=== PATIENT | female | born 1995 | race Caucasian/White ===

== ENCOUNTER 2023-08-15 23:13 | Emergency (ER) | payer SELFPAY ==
[2023-08-15 23:17] VITALS: BP 130/86; PULSE 77; RESP 16; TEMP 36.8; O2SAT 96; BMI 52.2
--- NOTE | 2023-08-15 23:37 | CT_ITS ---
The [address] [address] Patient Name: RAINA WHYTE MRN: [id number] date: 1995 Sex: F Assigned Patient Location: ER Current Patient Location: ER Accession/Order Number: [id number] Exam Date: 08/15/2023 23:59 Report Date: 08/16/2023 00:43 At the request of: CAREN BYNUM Procedure: CT head/brain wo con EXAM: CT head/brain wo con HISTORY: Headache, nausea and dizziness COMPARISON: None. TECHNIQUE: Axial CT scans through the head were obtained without IV contrast administration. Dose reduction techniques were achieved by using: automated exposure control and/or adjustment of mA and /or kV according to patient size and/or use of iterative reconstruction technique. FINDINGS: There is no acute intracranial hemorrhage or abnormal extra-axial fluid collection. No mass effect or midline shift is seen. There is no evidence of large acute territorial infarction. There is no hydrocephalus. To the limit of CT, the posterior fossa appears unremarkable. The calvaria and extra cranial soft tissues are unremarkable. The visualized orbits show no abnormal mass. The visualized paranasal sinuses show no air-fluid level. Mastoid air cells are clear. There are cerumen within bilateral external auditory canals. CT/CT head/brain wo con IMPRESSION: Unremarkable brain CT performed without contrast. Electronically authenticated by: MAHENDRA STARK Date: 08/16/2023 00:43
[2023-08-16] MEDS: KETOROLAC TROMETHAMINE 30 MG/ML VIAL 15 MG IVP (00:03)
[2023-08-16] MEDS: PROCHLORPERAZINE 10 MG/2 ML VIAL IV (00:03)
[2023-08-16] MEDS: 0.9 % SODIUM CHLORIDE 1,000 ML 999 ML IV (00:03)
[2023-08-16] MEDS: ORPHENADRINE 60 MG/ 2 ML VIAL IV (00:03)
[2023-08-16] MEDS: DEXAMETHASONE SOD PHOS (PF) 10 MG/ML VIAL IV (00:04)
--- NOTE | 2023-08-16 00:05 | ED_ITS ---
HPI - General Adult General Chief complaint: Headache Stated complaint: HEADACHE Time Seen by Provider: 08/15/23 23:30 Source: patient Mode of arrival: walk-in History of Present Illness HPI narrative: Patient is a 20-year-old female who is presenting to the Emergency Room with chief complaint of acute on chronic headache/migraine. Patient's been having headaches and migraines since 2019 approximately. Patient boyfriend is at bedside. We can speak about patient's care from the boyfriend. Patient's had no recent head injury, no fall, no trauma. Patient has had nausea no vomiting. Patient states that she has multiple ALLERGIES to medications at home, patient believes is according to medications at home. Patient's never been to the Emergency Room previously for headache. Patient has never had a CT of the brain or MRI. Patient has never seen a neurologist previously. Patient's PCP is in [place]. Patient was seen a PCP in [place], and they were switched, and patient has no current medical care no current treatment for headaches or migraines. Patient has tried a few migraine medications in the past and the relief. Patient's has no recent falls. Patient is employed. Patient has no recent trauma. Patient has photophobia, phonophobia. Patient has mild neck pain. Patient has no other acute complaints at this time. . All systems are negative except as noted/marked. All systems reviewed and otherwise negative. . Nurses note and vital signs reviewed and patient is not hypoxic. General: The patient appears well and in no apparent distress. Patient is resting comfortably on cart. Patient is not toxic, lethargic, or listless Skin: Warm, dry, no pallor noted. There is no rash noted. No petechiae, purpura. Head: Normocephalic, atraumatic, Patient has mild paracervical soft tissue tenderness to palpation. No meningeal signs. No nuchal rigidity. Eye: Normal conjunctiva, no drainage, EOMI. PERRL; 4/2 Equal, bilateral. Ears, Nose, Mouth, and Throat: oral mucosa is moist. Nares patent. Mouth without vesicles. Cardiovascular: Regular Rate and Rhythm, no murmur, gallop, rub Respiratory: Patient is in no distress, no accessory muscle use, lungs are clear to auscultation, no wheezing, rales or rhonchi Back: non-tender, no CVA tenderness bilaterally to percussion. No CT LS midline pain GI: soft, obese, no tenderness to palpation, no masses appreciated. No rebound, guarding, or rigidity noted. No flank pain bilateral, No distention Musculoskeletal: Patient has full range of motion of all of the extremities, no motor, sensory, or focal neurological deficits Neurological: A&O x3, normal speech Psychiatric: Cooperative Related Data Home Medications Medication Instructions Recorded Confirmed omeprazole 20 mg capsule,delayed 20 mg PO DAILY 08/15/23 08/15/23 release Previous Rx's Medication Instructions Recorded prochlorperazine maleate 10 mg 10 mg PO Q12H PRN nausea and 08/16/23 tablet (Compazine) vomiting, headache 7 days #7 tabs Allergies Allergy/AdvReac Type Severity Reaction Status Date / Time acetaminophen [From Tylenol] Allergy Anaphylaxis Verified 08/15/23 23:27 aspirin Allergy Anaphylaxis Verified 08/15/23 23:27 [From Excedrin Migraine] caffeine Allergy Anaphylaxis Verified 08/15/23 23:27 [From Excedrin Migraine] ibuprofen [From Advil] Allergy Anaphylaxis Verified 08/15/23 23:27 codine Allergy Anaphylaxis Uncoded 08/15/23 23:27 PFSH PFSH Social History Smoking status: Never smoker Exam Constitutional Vital Signs, click to edit/add: Last Vital Signs Temp 98.3 F 08/15/23 23:17 Pulse 77 08/15/23 23:17 Resp 16 08/15/23 23:17 BP 130/86 08/15/23 23:17 Pulse Ox 96 08/15/23 23:17 O2 Del Method Room Air 08/15/23 23:17 Course Vital Signs Vital signs: Vital Signs Temperature 98.3 F 08/15/23 23:17 Pulse Rate 77 08/15/23 23:17 Respiratory Rate 16 08/15/23 23:17 Blood Pressure 130/86 08/15/23 23:17 Pulse Oximetry 96 08/15/23 23:17 Oxygen Delivery Method Room Air 08/15/23 23:17 Temperature 98.3 F 08/15/23 23:17 Pulse Rate 77 08/15/23 23:17 Respiratory Rate 16 08/15/23 23:17 Blood Pressure 130/86 08/15/23 23:17 Pulse Oximetry 96 08/15/23 23:17 Oxygen Delivery Method Room Air 08/15/23 23:17 Medical Decision Making MDM Narrative Medical decision making narrative: Patient has multiple medication ALLERGIES. Patient states she's never had IV medication before, she's never had IV Toradol previously. Patient wheezes to codeine the medication that she is ALLERGIC to at home. Patient is going to have IV Toradol, IV Compazine, Norflex, Decadron, and IV fluids. Patient is never had any imaging of the brain before, CT of the brain will be done To rule out normal pressure hydrocephalus. 0100 Patient's headache has significant improvement. Nausea is improved. Patient finished 1 L of IV fluid. Patient had no side effect to medication that has been given. CT of the brain showed no acute findings. Patient was sent home with a prescription for Compazine to use as needed for nausea, vomiting, or headache. Patient will follow-up with and establish PCP and neurology. Patient just received medical insurance again yesterday. No questions at discharge. Patient's boyfriend is driving her home. Discharge Plan Discharge Chief Complaint: Headache Clinical Impression: Headache Patient Disposition: Home, Self-Care Condition: Fair Prescriptions / Home Meds: New prochlorperazine maleate [Compazine] 10 mg tablet 10 mg PO Q12H PRN (Reason: nausea and vomiting, headache) 7 Days Qty: 7 0RF No Action omeprazole 20 mg capsule,delayed release(DR/EC) 20 mg PO DAILY Instructions: Acute Headache (ED) Additional Instructions: Follow-up and establish with PCP along with neurology for ongoing treatment of headache and migraines. Use Compazine as needed for nausea, vomiting or headache. Stand Alone Forms: Portal Instructions Referrals: Physician,Non-Staff, MD [Primary Care Provider] - 1 week
[2023-08-16 01:12] VITALS: BP 115/85; PULSE 80; RESP 16; O2SAT 97
== END 2023-08-16 01:16 | disposition home or self-care (01) ==
PROVIDERS: Emergency Provider Emergency Medicine
DX: R51.9 Headache, unspecified (principal); E66.9 Obesity, unspecified; Z68.43 Body mass index [BMI] 50.0-59.9, adult; Z79.899 Other long term (current) drug therapy
CPT/HCPCS: 70450; 96374; 96375; 99284

== ENCOUNTER 2024-07-20 03:56 | Emergency (ER) | payer MEDICAID, SELFPAY ==
[2024-07-20 03:58] VITALS: BP 138/87; PULSE 78; TEMP 36.6; O2SAT 96; BMI 54.3
--- OUTSIDE RECORDS SUMMARY | 2024-07-20 04:12 | XMS_ITS | CCD ---
Author Organization [facility] Team Providers Care Disbursing Agent Name Role Phone REI NARVAEZ JR Attending Unavailable REQUEST, NONE LISTED Primary Care Unavaila rosita BANERJEE, DR BARRETT Admitting Unavailable CHRISS, DR BARRETT Attending Unavailable SIDDHARTHA FRANZ Consulting Unavailable REQUEST, DR GONZALEZ LISTED Primary Care UnavailSIDDHARTHA Alfaro Attending Unavailable SIDDHARTHA FRANZ Admitting Unavailable Unavailable Primary Care Provider JR Thibodeaux Primary Care Unavailable MANJU JOSÉ Attending Unavailable ERLINDA OCHOA Attending Unavailable ERLINDA OCHOA Referring Unavailable JR NARANJO Primary Care Unavailable Allergies Allergy Classification Reported Allergen(s) Allergy Type Date of Onset Reaction(s) Facility (3 sources) Acetaminophen; Translations: [ACETAMINOPHEN] Drug Allergy 05-11-2023 [facility] (2 sources) Ibuprofen Drug Allergy 05-11-2023 [facility] Medications Current Medications Medication Drug Class(es) Dates Sig (Normalized) Sig (Original) cyclobenzaprine hydrochloride 10 mg oral tablet (2 sources) Muscle Relaxant Start: 05-11-2023 take 1 tablet by mouth three times daily as needed for muscle spasms cyclobenzaprine (FLEXERIL) 10 MG tablet Take 1 Tablet by mouth 3 times daily as needed for Muscle spasms. 21 Tablet 0 05/11/2023 Active lidocaine 0.05 mg/mg medicated patch (3 sources) Antiarrhythmic, Amide Local Anesthetic Start: 05-11-2023 apply 1 dose transdermal route every twenty-four hours lidocaine (Lidoderm) 5 % patch Place 1 Patch on the skin every 24 hours. 10 Patch 0 05/11/2023 Active omeprazole 20 mg delayed release oral capsule (2 sources) Proton Pump Inhibitor Start: 05-11-2023 End: 06-10-2023 take 1 capsule by mouth once daily omeprazole (PRILOSEC) 20 MG capsule Take 1 Capsule by mouth daily. 30 Capsule 0 05/11/2023 Active sucralfate 1000 mg oral tablet (2 sources) Aluminum Complex Start: 05-11-2023 End: 05-19-2023 take 1 tablet by mouth four times daily sucralfate (Carafate) 1 GM tablet Take 1 Tablet by mouth 4 times daily for 8 days. 30 Tablet 0 05/11/2023 Active Completed/Discontinued Medications Medication Drug Class(es) Dates Sig (Normalized) Sig (Original) diphenhydrAMINE-maalo x-lidocaine (BMX) 1:1:1 oral suspension (1 source) Start: 05-11-2023 End: 05-11-2023 diphenhydrAMINE-maal ox-lidocaine (BMX) 1:1:1 oral suspension ondansetron 4 mg disintegrating oral tablet (1 source) Serotonin-3 Receptor Antagonist Start: 05-11-2023 End: 05-11-2023 ondansetron (ZOFRAN-ODT) disintegrating tablet Problems Active Problems Problem Classification Problem Date Documented Da te Episodic/Chronic Esophageal disorders (2 sources) Gastro-esophageal reflux disease with esophagitis; Translations: [Gastroesophageal reflux disease with esophagitis without hemorrhage] Onset: 11-11-2022 05-11-2023 Chronic Headache; including migraine (2 sources) Migraine without aura, not refractory ; Translations: [Migraine without aura, not intractable, with status migrainosus] Onset: 01-10-2023 05-11-2023 Chronic Malaise and fatigue (2 sources) Fatigue; Translations: [Chronic fatigue, unspecified] Onset: 03-25-2022 05-11-2023 Chronic Mood disorders (2 sources) Depressive disorder; Translations: [Depression] Onset: 05-11-2023 05-11-2023 Chronic Other disorders of stomach and duodenum (1 source) Indigestion; Translations: [Functional dyspepsia] 05-11-2023 Episodic Other non-traumatic joint disorders (2 sources) Shoulder pain Onset: 04-12-2024 Episodic Other nutritional; endocrine; and metabolic disorders (2 sources) Severe obesity; Translations: [Morbid (severe) obesity due to excess calories] Onset: 03-25-2022 05-11-2023 Chronic Sprains and strains (2 sources) Strain of back muscle; Translations: [Strain of muscle, fascia and tendon of lower back, initial encounter] Onset: 04-12-2024 05-11-2023 Episodic Unclassified (3 sources) CONTACT W/AND (SUSP) EXPOS COVID-19; Translations: [CONTACT W/AND (SUSP) EXPOS COVID-19] Onset: 06-02-2021 Past or Other Problems Problem Classification Problem Date Documented Date Episodic/Chronic Abdominal hernia (2 sources) Hiatal hernia; Translations: [Diaphragmatic hernia without obstruction or gangrene] Onset: 12-02-2022 05-11-2023 Episodic Abdominal pain (5 sources) Chronic abdominal pain; Translations: [Unspecified abdominal pain] Onset: 11-11-2022 05-11-2023 Episodic Cancer of cervix (2 sources) Cervicovaginal cytology: High grade squamous intraepithelial lesion or carcinoma; Translations: [High grade squamous intraepithelial lesion on cytologic smear of cervix (HGSIL)] Onset: 05-11-2023 05-11-2023 Episodic Nausea and vomiting (2 sources) Nausea and vomiting; Translations: [Nausea with vomiting, unspecified] Onset: 11-11-2022 05-11-2023 Episodic Nutritional deficiencies (2 sources) Cobalamin deficiency; Translations: [Deficiency of other specified B group vitamins] Onset: 04-28-2022 05-11-2023 Episodic Other non-traumatic joint disorders (2 sources) Arthralgia of the ankle and/or foot; Translations: [Pain in left ankle and joints of left foot] Onset: 08-04-2022 05-11-2023 Episodic Other screening for suspected conditions (not mental disorders or infectious disease) (2 sources) Patient encounter status; Translations: [Encounter for screening for lipoid disorders] Onset: 03-25-2022 05-11-2023 Episodic Residual codes; unclassified (2 sources) Difficulty sleeping ; Translations: [Sleep deprivation] Onset: 03-25-2022 05-11-2023 Episodic Spondylosis; intervertebral disc disorders; other back problems (2 sources) Low back pain; Translations: [Lumbar pain] Onset: 03-25-2022 05-11-2023 Episodic Unclassified (1 source) CONTACT W/AND (SUSP) EXPOS COVID-19; Translations: [CONTACT W/AND (SUSP) EXPOS COVID-19] Onset: 05-16-2021 Results Test Name Value Interpretation Reference Range Facil ity XR SHOULDER LT MIN 2 VWSon 0 04-12-2024 XR SHOULDER LT MIN 2 VWS XR SHOULDER LT MIN 2 VWS XR SHOULDER LT MIN 2 VWS History: pain Comparison January 25, 2016 Findings: There is no fracture, dislocation, or destructive lesion. Impression: * No acute findings. Consider MR if you suspect occult internal derangement 0 Finalized by Preet Ni MD on 04/12/2024 12:13 AM Normal [facility] HCG URINEOrdered By: Tia jeffers on 05-11-2023 HCG ( test) Ql (U) Negative Negative [facility] Interpretation and review of laboratory results Normal [facility] URINALYSISon 05-11-2023 Appearance (U) Clear Clear [facility] Bilirubin Ql (U) Negative Negative [facility] Color (U) Yellow Yellow [facility] Glucose Auto test strip (U) [Mass/Vol] Negative Negative mg/dL [facility] Hemoglobin Ql (U) Negative Negative [facility] Ketones Ql (U) Negative Negative mg/dL [facility] Leukocyte esterase Test strip Ql (U) Negative Negative [facility] Nitrite Ql (U) Negative Negative [facility] pH (U) 6.0 [pH] 5.0 - 8.0 [facility] Protein (U) [Mass/Vol] Negative Negative mg/dL [facility] Specific gravity (U) [Rel density] 1.025 1.005 - 1.030 [facility] Urobilinogen Qn (U) 0.2 mg/dL 0.2 - 1.0 mg/dL [facility] Covid-19 PCR (CVDTBH)on 05-03 SARS-CoV-2 (COVID-19) RNA ERICA+probe Ql (Unsp spec) Not detected Normal NOT DETECTED [facility] Comment on above: Result Comment: This test is not yet approved or cleared by the [place] FDA. When there are no FDA-approved or cleared tests available, and other criteria are met, FDA can make tests available under an emergency access mechanism called an Emergency Use Authorization (EUA). The EUA for this test is supported by the [employer] of Health and Human Service's (HHS's) declaration that circumstances exist to justify the emergency use of in vitro diagnostics for the detection and/or diagnosis of the virus that causes COVID-19. This EUA will remain in effect (meaning this test can be used) for the duration of the COVID-19 declaration justifying emergency of IVDs, unless it is terminated or revoked by FDA (after which the test may no longer be used). When diagnostic testing is negative, the possibility of a false negative should be considered in the context of a patient's recent exposures and the presence of clinical signs and symptoms consistent with SARS-CoV-2. Performed By: #### C [facility] #### [place] [address] [address] Donohue XR ANKLE RIGHT (MIN 3 VIEWS) on 03-17-2019 XR ANKLE RIGHT (MIN 3 VIEWS) EXAMINATION: 3 XRAY VIEWS OF THE RIGHT ANKLE; 2 XRAY VIEWS OF THE RIGHT CALCANEUS 03/17/2019 3:41 pm COMPARISON: None. HISTORY: ORDERING SYSTEM PROVIDED HISTORY: injury TECHNOLOGIST PROVIDED HISTORY: injury FINDINGS: Right ankle, three views: No acute fracture or dislocation. The ankle mortise and talar dome are maintained. No focal soft tissue abnormality. Right calcaneus, two views: No acute fracture is seen. The subtalar joint and calcaneal cuboid joint are unremarkable. No focal soft tissue abnormality. IMPRESSION: No acute osseous abnormality of the right ankle. No acute osseous abnormality of the right os calcis. Interpreted by: Manju Person MD Signed by: Manju Person MD 03/17/19 Final result Normal [facility] XR CALCANEUS RIGHT (MIN 2 EWS)on 03-17-2019 XR CALCANEUS RIGHT (MIN 2 VIEWS) EXAMINATION: 3 XRAY VIEWS OF THE RIGHT ANKLE; 2 XRAY VIEWS OF THE RIGHT CALCANEUS 03/17/2019 3:41 pm COMPARISON: None. HISTORY: ORDERING SYSTEM PROVIDED HISTORY: injury TECHNOLOGIST PROVIDED HISTORY: injury FINDINGS: Right ankle, three views: No acute fracture or dislocation. The ankle mortise and talar dome are maintained. No focal soft tissue abnormality. Right calcaneus, two views: No acute fracture is seen. The subtalar joint and calcaneal cuboid joint are unremarkable. No focal soft tissue abnormality. IMPRESSION: No acute osseous abnormality of the right ankle. No acute osseous abnormality of the right os calcis. Interpreted by: Manju Person MD Signed by: Manju Person MD 03/17/19 Final result Normal [facility] Vital Signs Date Time Vital Sign Value Performing Clinician Faci lity 05-11-2023 20:59-0400 Heart rate 89 /min Elan Matthew DO Work Phone: [employer] 05-11-2023 20:59-0400 Respiratory rate 18 /min Elan Matthew DO Work Phone: [employer] 05-11-2023 20:59-0400 SaO2% (BldA) [Mass fraction] 97 % Elan Matthew DO Work Phone: [employer] 05-11-2023 18:41-0400 Body temperature 98.49 [degF] Elan Matthew DO Work Phone: [employer] 05-11-2023 18:41-0400 Body weight 147.42 kg Elan Matthew DO Work Phone: [employer] 05-11-2023 18:41-0400 Diastolic blood pressure 86 mm[Hg] Elan Matthew DO Work Phone: [employer] 05-11-2023 18:41-0400 Systolic blood pressure 135 mm[Hg] Elan Matthew DO Work Phone: [employer] Encounters Encounter Date Encounter Type Care Provider Facility Start: 04-11-2024 End: 04-13-2024 Emergency department patient visit ERLINDA Earl [facility] Start: 02-12-2024 [facility] Start: 05-11-2023 End: 05-11-2023 Emergency department patient visit Elan Matthew DO Work Phone: [facility] Comment on above: Back symptoms/compla ints (Pt c/o lower back pain since November ); Abdominal pain (Pt c/o lower abd pain for months) Start: 11-17-2021 ambulatory NONE LISTED REQUEST Facility:[facility] Start: 05-16-2021 End: 05-17-2021 ambulatory SIDDHARTHA FRANZ Facility:[facility] Start: 03-17-2019 End: 03-17-2019 Emergency department patient visit REI NARVAEZ JR [facility] Procedures Date Procedure Procedure Detail Performing Clinician Start: 05-11-2023 Urine test visual color cmprsn salass Marianne King ASSISTANT TEACHING PROFESSOR-INFRASTRUCTURE MANAGER Work Phone: Start: 03-17-2019 BANDAGE NOE 6 REI WICK JR Start: 03-17-2019 CRUTCHES REI FORD JR Start: 03-17-2019 Radex ankle complete minimum 3 views REI NARVAEZ JR Start: 03-17-2019 Radex calcaneus mini mum 2 views REI NARVAEZ JR Plan of Treatment Date Care Activity Detail Author Start: 2045 Shingles (RZV) Vaccine (1 of 2) Shingles (RZV) Vaccine (1 of 2) [facility] Start: 08-05-2023 End: 08-05-2023 ambulatory 08/05/2023 3:00 PM EDT Financial Counseling [facility] [address] [place] [address] [facility] Financial Topographical Drafter [facility] Start: 07-03-2023 Influenza vaccination Influenza Vaccine (#1) [facility] Start: 06-03-2023 COVID-19 Vaccine ( season) COVID-19 Vaccine ( season) [facility] Start: 11-14-2018 Tetanus vaccination Tetanus (Td or Tdap) Booster [facility] Start: 02-07-2016 Screening for malignant neoplasm of cervix Pap Smear [facility] Start: 2013 Hepatitis C screening Hepatitis C Antibody [facility] Start: 2013 Tetanus + diphtheria + acellular pertussis vaccine (product) Tdap Booster [facility] Start: 2010 HIV screening HIV Test [facility] Start: 1995 Hepatitis B vaccination Hepatitis B (HBV) Vaccine (1 of 3 - [facility]-dose series[facility] Immun[facility] Immunization Date Immunization Notes Care Provider Fa mustapha 04-12-2021 Pfizer Monovalent (1 2+ yrs) SARS-COV-2 (COVID-19) vaccine, mRNA, spike protein, LNP, pres. free, 30 mcg/0.3mL dose (PKL=209) [facility] 03-22-2021 Pfizer Monovalent (1 2+ yrs) SARS-COV-2 (COVID-19) vaccine, mRNA, spike protein, LNP, pres. free, 30 mcg/0.3mL dose (EAR=489) [facility] 12-04-2015 Human Papillomavirus 9-valent vaccine [facility] 05-18-2011 varicella virus vaccine [facility] 04-03-2010 human papilloma viru s vaccine, quadrivalent [facility] 06-16-2009 hepatitis A vaccine, pediatric/adolescent dosage, 2 dose schedule [facility] 06-16-2009 human papilloma viru s vaccine, quadrivalent [facility] 11-14-2008 hepatitis A vaccine, pediatric/adolescent dosage, 2 dose schedule [facility] 11-14-2008 human papilloma viru s vaccine, quadrivalent [facility] 11-14-2008 influenza, seasonal, injectable [facility] 11-14-2008 meningococcal polysa ccharide (groups A, C, Y and W-135) diphtheria toxoid conjugate vaccine (MCV4P) [facility] 11-14-2008 tetanus toxoid, redu keri diphtheria toxoid, and acellular pertussis vaccine, adsorbed [facility] 11-14-2008 varicella virus vaccine [facility] 06-09-2000 diphtheria, tetanus toxoids and acellular pertussis vaccine, unspecified formulation [facility] 06-09-2000 measles, mumps and r ubella virus vaccine [facility] 06-09-2000 poliovirus vaccine, inactivated [facility] Payers Date Payer Category Payer Unknown [id number] 2023 Unknown [id number] 1995 Unknown [id number] 1995 Unknown [id number] 1995 Unknown [id number] 1995 Unknown [id number] 1959 Unknown [id number] Social History Date Type Detail Facility Tobacco smoking status NDIS Tobacco smoking consumption unknown [facility] Work Phone: Start: 1995 Sex Assigned At Female M [facility] Gender identity Not on file [facility] Hospital Discharge instructions 05-11-2023 Discharge InstructionsAttachments Note Date & Type Note Facility 05-11-2023 Hospital Discharg e instructions Kennedi Ramirez PA-C - 05/11/2023 8:42 PM EDT Abdominal Pain Instructions: Return to the ED if the stomach pain worsens, is still there in 12-24 hours, if it moves to the right lower part of the stomach, or if you can't keep down liquids Back Injury Instructions: Return to the ED if you have weakness or numbness in your arms or legs, you are unable to control your bowels or bladder, or you are unable to walk or if you have worsening pain in your back. Take Flexeril as needed for muscle pain. This medication can make you tired. Use Lidoderm patches as needed. Take omeprazole and Carafate as instructed. Follow-up with GI and your PCP. The following attachments cannot be sent through Care Everywhere.Dyspepsia Discharge Instructions (Citizen [place])Back Muscle Strain Discharge Instructions (Citizen [place])documented in this encounter [facility] Evaluation note Note Date & Type Note Facility Evaluation note Diagnosis Back strain, initial encounter- Primary Chronic abdominal pain Abdominal pain, unspecified site Indigestion Dyspepsia and other specified disorders of function of stomach documented in this encounter [facility] Summary Purpose Family History No Family History Records FoundNo Family History Records FoundNo Family History Records Found Advance Directives No Advanced Directives Records FoundNo Advanced Directives Records FoundNo Advanced Directives Records Found Reason for Referral Specialty Diagnoses / Procedures Referred By Contact Referred To Contact Physical Medicine & Rehab/PM&R Diagnoses Back strain, initial encounter Elan Matthew DO [address] [facility] [address] [facility] [address] [place] [id number] Referral ID Status Reason Start Date Expiration Date V isits Requested Visits Authorized [id number] Pending Review 05/11/2023 05/11/2024 1 1 Scheduling Instructions You have been referred to the Department of Physical Medicine and Rehabilitation. Please call to schedule an appointment . Please arrive 20 minutes prior to your appointment. A personal identification card and insurance card(s) are required at the time of registry. If you have radiology films or other pertinent documents from an outside hospital, please bring them with you. If you are unable to keep your appointment, please call at least 24 hours in advance. Question Answer Patient to be evaluated for: Musculoskeletal Is the issue related to the Spine (Neck/Back Pain)? Yes Specialty Diagnoses / Procedures Referred By Faustino shrestha Referred To Contact Gastroenterology Diagnoses Chronic abdominal pain Indigestion Kennedi Ramirez PA-C [address] [place], [place] [id number] [facility] [address] [place] [address] Referral ID Status Reason Start Date Expiration Date V isits Requested Visits Authorized [id number] Pending Review 05/11/2023 05/11/2024 3 3 Scheduling Instructions Please call the Gastroenterology Clinic at to schedule an appointment if one was not made for you today. Question Answer Reason for Referral: Acid Reflux [3] Which GI clinic should the patient be scheduled in? General GI Clinic Comments No prior visits in Gastroenterology Additional Source Comments INFORMATION SOURCE (unrecogn ized section and content) DATE CREATED AUTHOR 03/17/2019 [facility] DATE CREATED AUTHOR AUTHOR'S ORGANIZ ATION 11/04/2021 [facility] DATE CREATED AUTHOR AUTHOR'S ORGANIZ ATION 04/18/2024 [facility] Reason for Visit (unrecogniz ed section and content) Reason Comments Back symptoms/complaints Pt c/o lower ba ck pain since November Abdominal pain Pt c/o lower abd shantel n for months Scheduled Active and Recently Administ ered Medications (unrecognized section and content) Medication Order 05/09/2023 05/10/2023 05/11/2023 acetaminophen (TYLENOL) tablet 1,000 mg, Oral, ONCE, 1 dose, On Tue05/11/23 at 2019 2019 (Hold/Not Given - Provider: Kennedi Fabian RN - Reason: Patient refused - Comment: pt states she has an allergic reaction to tylenol and ibuprofen) [id number] (BMX) 1:1:1 oral suspension (COMPLETED) 30 mL, Swish & Swallow, ONCE, 1 dose, On Tue05/11/23 at 2019 2033 (Given - Provid er: Kennedi Fabian RN) lidocaine (LIDODERM) 5 % patch 1 Patch, Transdermal, EVERY 24 HOURS, First dose on Tue05/11/23 at 2019, Until Discontinued 2033 (Patch Applied - Provider: Kennedi Fabian RN) ondansetron (ZOFRAN-ODT) disintegrating tablet (COMPLETED) 4 mg, Oral, ONCE, 1 dose, On Tue05/11/23 at 2019 2033 (Given - Provid er: Kennedi Fabian RN) FOR RECORDS PERTAINING TO PATIENTS WHO ARE OR HAVE BEEN ENROLLED IN A CHEMICAL DEPENDENCY/SUBSTANCEABUSE PROGRAM, SOME INFORMATION MAY BE OMITTED. This clinical summary was aggregated from multiple sources. Caution should be exercised in using it in the provision of clinical care. This summary normalizes information from multiple sources, and as a consequence, information in this document may materially change the coding, format and clinical context of patient data. In addition, data may be omitted in some cases. CLINICAL DECISIONS SHOULD BE BASED ON THE PRIMARY CLINICAL RECORDS. [employer] provides no warranty or guarantee of the accuracy or completeness of information in this document.
--- NOTE | 2024-07-20 04:49 | ED_ITS ---
HPI HPI - General Adult General Chief complaint: Ear Stated complaint: r ear pain Time Seen by Provider: 07/20/24 04:04 Source: patient Mode of arrival: walk-in Limitations: no limitations History of Present Illness HPI narrative: 29-year-old female to the emergency department chief complaint of right ear pain. Patient reports that she has wax in her ear. She has been using [id number] medications and attempting to wax herself. She has not pain and discharge from the ear. She denies any fever, sweats, chills. She is not diabetic or immunocompromise. Related Data Previous Rx's ?Medication ?Instructions ?Recorded ciprofloxacin 0.3 %-dexamethasone 4 drp otic (ear) BID 7 days #7.5 mL 07/20/24 0.1 % ear drops,suspension (Ciprodex) Allergies Allergy/AdvReac Type Severity Reaction Status Date / Time acetaminophen (From Tylenol) Allergy Anaphylaxis Verified 07/20/24 04:06 aspirin (From Excedrin Allergy Anaphylaxis Verified 07/20/24 04:06 Migraine) caffeine (From Excedrin Allergy Anaphylaxis Verified 07/20/24 04:06 Migraine) ibuprofen (From Advil) Allergy Anaphylaxis Verified 07/20/24 04:06 codine Allergy Anaphylaxis Uncoded 07/20/24 04:06 Opioid HPI Opioid Management Most Recent Opioid Data: No Data to Display Review of Systems ROS Status of ROS 10 or more systems reviewed and unremark able except as noted in history and below PFSH PFSH Social History Smoking status: Never smoker Little interest or pleasure in doing things: not at all Feeling down, depressed, or hopeless: not at all Exam Narrative Exam Narrative: VITALS: I have reviewed the triage vital signs. GENERAL: Well developed, well appearing adult in no acute distress. NEURO: Alert and oriented. Moves all extremities. Face is symmetric and expressive. EYES: PERRL. No scleral icterus or conjunctival injection. No discharge. HENT: Normocephalic, atraumatic. Hearing is grossly intact. Nares grossly patent and without discharge. Mucous membranes moist. No mastoid tenderness. Sterile canals are cerumen impacted with dark solid wax obstructing view of the tympanic membrane. The left external canal is otherwise normal. The right external canal is edematous with debris and discharge. NECK: No JVD. Patient moves neck without restriction. EXTREMITIES: Symmetric muscle bulk. No joint swelling. No clubbing, cyanosis, or deformity. SKIN: Warm and dry. Normal turgor. No rash or lesions appreciated. PSYCH: Mood, affect, and interaction is appropriate to the setting. Constitutional Vital Signs, click to edit/add: Last Vital Signs Temp 97.8 F 07/20/24 03:58 Pulse 78 07/20/24 03:58 Resp 18 07/20/24 03:58 BP 138/87 07/20/24 03:58 Pulse Ox 96 07/20/24 03:58 O2 Del Method Room Air 07/20/24 03:58 Course Vital Signs Vital signs: Vital Signs Temperature 97.8 F 07/20/24 03:58 Pulse Rate 78 07/20/24 03:58 Respiratory Rate 18 07/20/24 03:58 Blood Pressure 138/87 07/20/24 03:58 Pulse Oximetry 96 07/20/24 03:58 Oxygen Delivery Method Room Air 07/20/24 03:58 Temperature 97.8 F 07/20/24 03:58 Pulse Rate 78 07/20/24 03:58 Respiratory Rate 18 07/20/24 03:58 Blood Pressure 138/87 07/20/24 03:58 Pulse Oximetry 96 07/20/24 03:58 Oxygen Delivery Method Room Air 07/20/24 03:58 Medical Decision Making MDM Narrative Medical decision making narrative: 29-year-old female to the emergency department with chief complaint of right- sided ear pain. Vital stable, the patient is afebrile. Obvious right-sided otitis externa on exam. Ciprodex drops were prescribed. Return precautions discussed. All questions were answered. Patient was discharged home. Discharge Plan Discharge Chief Complaint: Ear Clinical Impression: Otitis externa Patient Disposition: Home, Self-Care Time of Disposition Decision: 04:04 Condition: Good Mode of Transportation: Private Vehicle Prescriptions / Home Meds: New ciprofloxacin-dexamethasone [Ciprodex] 0.3-0.1 % drops,suspension 4 drp otic (ear) BID 7 Days Qty: 7.5 0RF Print Language: Bahamian Instructions: [facility] (ED) Referrals: Physician,Non-Staff, MD [Primary Care Provider] - 1 week Discharge Date/Time: 07/20/24 04:19
== END 2024-07-20 04:19 | disposition home or self-care (01) ==
PROVIDERS: Emergency Provider Student in an Organized Health Care Education/Training Program
DX: H60.91 Unspecified otitis externa, right ear (principal)
CPT/HCPCS: 99283